=== PATIENT | male | born 1960 | race African-American/Black ===

== ENCOUNTER 2024-12-22 05:24 | Emergency (ER) | payer MEDICARE, MEDICAID ==
[~2024-12-22] VITALS: Ht 185.4 cm; Wt 104.0 kg
[2024-12-22 05:26] VITALS: O2SAT 99
[2024-12-22] MEDS: KETOROLAC 15MG/ML VIAL IM ONE (06:13)
[2024-12-22] MEDS: ACETAMINOPHEN 325MG TABLET PO ONE (07:07)
[2024-12-22] MEDS: FLUTICASONE PROPIONATE 50MCG/SPRAY BOTTLE BOTHNSTRLS STA (07:08)
[2024-12-22] MEDS ORDERED: TOPUD PO (08:55)
[2024-12-22 09:08] VITALS: BP 150/98; PULSE 95; RESP 18; TEMP 36.8; O2SAT 99
== END 2024-12-22 09:09 | disposition home or self-care (01) ==
LOC: ER 05:24
DX: B34.9 Viral infection, unspecified (principal); E11.9 Type 2 diabetes mellitus without complications; I10 Essential (primary) hypertension; M10.9 Gout, unspecified
CPT/HCPCS: 87070; 87430; 99283